=== PATIENT | female | born 1930 | race Caucasian/White ===

== ENCOUNTER 2018-11-24 16:28 | Emergency (ER) | payer OTHER ==
[~2018-11-24] VITALS: Ht 157.5 cm; Wt 64.6 kg
[~2018-11-24 16:28] MED LIST: ATOR40TA68 PO; LEVO50TA7 PO
[2018-11-24 16:37] VITALS: Ht 157.5 cm; Wt 64.6 kg
[2018-11-24] MEDS ORDERED: SOD CHLORIDE 0.9% 1,000 ML IV STA (16:38)
--- NOTE | 2018-11-24 17:58 | ERD ---
ER Documentation Chief Complaint Chief Complaint near syncope at the store. No KO, AOX4 HPI Patient is a 88-year-old female with no medical problems who presents with syncope. Please note that a employee relations manager was used for the entire history and physical exam. The patient was brought in by ambulance. She was at the [employer] when she passed out. She was lowered to the ground by a bystander. She could not get up off the floor and felt diffusely weak. Blood sugar was 156. She said "I think it might of been the heat". She denies pain. She does feel shaky currently. Upon review of old medical records this is the patient's first visit to the emergency department. She does not remember the name of her primary doctor. ROS All systems reviewed and are negative except as per history of present illness. Medications Home Meds Reported Medications Levothyroxine Sodium* (Levothyroxine Sodium*) 50 Mcg Tablet, 50 MCG PO BEFORE BREAKFAST, #30 TAB 11/24/18 Atorvastatin* (Atorvastatin*) 40 Mg Tablet, 40 MG PO QHS, #30 TAB 11/24/18 Allergies Allergies: Coded Allergies: No Known Allergy (Unverified , 11/24/18) PMhx/Soc Medical and Surgical Hx: pt denies Surgical Hx History of Surgery: No Anesthesia Reaction: No Hx Neurological Disorder: No Hx Respiratory Disorders: No Hx Cardiac Disorders: Yes (HIGH CHOLESTEROL) Hx Psychiatric Problems: No Hx Miscellaneous Medical Probl: No Hx Alcohol Use: No Hx Substance Use: No Hx Tobacco Use: No Smoking Status: Never smoker FmHx Family History: No diabetes Physical Exam Vitals Vital Signs Date Temp Pulse Resp B/P (MAP) Pulse Ox O2 O2 Flow FiO2 Time Delivery Rate 11/24/18 97.7 94 20 143/82 97 16:37 (102) Physical Exam Const: No acute distress Head: Atraumatic Eyes: Normal Conjunctiva ENT: Normal External Ears, Nose and Mouth. Neck: Full range of motion. No meningismus. Resp: Clear to auscultation bilaterally Cardio: Regular rate and rhythm, no murmurs Abd: Soft, non tender, non distended. Normal bowel sounds Skin: No petechiae or rashes Back: No midline or flank tenderness Ext: No cyanosis, or edema Neur: Awake and alert Psych: Normal Mood and Affect Result Diagram: 11/24/18 1646 11/24/18 1646 Results 24 hrs Laboratory Tests Test 11/24/18 16:46 White Blood Count 9.3 10^3/ul Red Blood Count 4.78 10^6/ul Hemoglobin 14.7 g/dl Hematocrit 44.9 % Mean Corpuscular Volume 93.9 fl Mean Corpuscular Hemoglobin 30.8 pg Mean Corpuscular Hemoglobin Concent 32.7 g/dl Red Cell Distribution Width 13.2 % Platelet Count 283 10^3/UL Mean Platelet Volume 10.7 fl Immature Granulocytes % 0.600 % Neutrophils % 59.1 % Lymphocytes % 28.6 % Monocytes % 9.7 % Eosinophils % 1.4 % Basophils % 0.6 % Nucleated Red Blood Cells % 0.0 /100WBC Immature Granulocytes # 0.060 10^3/ul Neutrophils # 5.5 10^3/ul Lymphocytes # 2.7 10^3/ul Monocytes # 0.9 10^3/ul Eosinophils # 0.1 10^3/ul Basophils # 0.1 10^3/ul Nucleated Red Blood Cells # 0.0 10^3/ul Sodium Level 142 mmol/L Potassium Level 3.8 mmol/L Chloride Level 106 mmol/L Carbon Dioxide Level 22 mmol/L Anion Gap 14 Blood Urea Nitrogen 17 mg/dl Creatinine 0.80 mg/dl Est Glomerular Filtrat Rate mL/min mL/min Glucose Level 161 mg/dl Calcium Level 10.1 mg/dl Troponin I < 0.012 ng/ml Current Medications Medications Dose Sig/Wagner Start Time Status Last (Trade) Ordered Route PRN Stop Time Admin Dose Reason Admin Sodium 1,000 ml @ Q1H STAT 11/24/18 DC 11/24/18 Chloride 1,000 mls/hr IV 16:38 11/24/18 17:16 17:37 Procedures/MDM EKG read by me: Rate/Rhythm: Regular rate and rhythm at a normal rate Intervals: Prolonged QTc interval 527 Impression: No ischemia but prolonged QTC Smoking Cessation Therapy: Pt. was lectured for greater than 3 minutes on the health risks of continued smoking and the benefits of cessation. Patient is an 88-year-old female presents with a prolonged QTc interval and syn cope. The patient will need admission for telemetry monitoring. I spoke with Dr. Rose at [facility] as the patient is a [facility] patient. The patient will be transferred to [facility] for further evaluation. Authorization number is [id number]. The patient will be transferred by ambulance. At this point I doubt acute coronary syndrome, pulmonary embolism, or aortic dissection. Departure Diagnosis: Primary Impression: Prolonged QT interval Additional Impression: Syncope Syncope type: unspecified Qualified Codes: R55 - Syncope and collapse Condition: GAURAV Pettit MD Nov 24, 2018 17:58
[2018-11-24 19:10] VITALS: BP 157/84; PULSE 82; RESP 21
== END 2018-11-24 19:10 | disposition short-term general hospital (02) ==
LOC: E/R 16:28
DX: I45.81 Long QT syndrome (principal)
CPT/HCPCS: 36415; 80048; 84484; 85025; 93005; 99285; J7030